=== PATIENT | female | born 2000 | race Hispanic/Latino ===

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

== ENCOUNTER → 2020-04-04 | Outpatient (CLI) | payer OTHER | LOC: YCFC.O 15:11 | PROVIDERS: ATTEND Nurse Practitioner Family | DX: Z20.818 Contact with and (suspected) exposure to other bacterial communicable diseases (principal) ==